=== PATIENT | male | born 1960 | race Caucasian/White ===

== ENCOUNTER 2021-01-24 20:18 | Emergency (ER) | payer MEDICAID ==
[~2021-01-24] VITALS: Ht 182.9 cm; Wt 61.7 kg
[2021-01-24 20:20] VITALS: BP_SYST 192
--- NOTE | 2021-01-24 20:23 | NUR ---
[facility] Side rails up. Report given to Mer PATRICK.
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
--- NOTE | 2021-01-24 20:49 | NUR ---
ER Dr. Garcia at bedside examining patient.
[2021-01-24] MEDS ORDERED: ASPIRIN 81 MG TAB.CHEW PO ONE (21:00)
[2021-01-24] MEDS ORDERED: hydrALAZINE HCL 20 MG/ML VIAL IVP ONE (21:00)
--- NOTE | 2021-01-24 21:00 | NUR ---
# 18 gauge angiocath placed to RAC. Use of asceptic technique. Opsite placed over site. Blood return noted. Blood for lab drawn from site. Flushed with 10 cc of normal saline. No evidence of infiltration noted. Patient tolerated well.
--- NOTE | 2021-01-24 21:01 | NUR ---
Patient moved to bed 2 for cardiac monitoring
[2021-01-24 21:12] LABS: BASOPHILS # (AUTO) 0.1 K/uL (0.0-0.2); BASOPHILS % (AUTO) 0.8 % (0.0-2.0); EOSINOPHILS % (AUTO) 0.2 % (0.0-4.0); HEMATOCRIT 45.6 % (36-54); HEMOGLOBIN 15.9 g/dL (14.0-18.0); LYMPHOCYTES # (AUTO) 1.4 K/uL (1.0-5.5); LYMPHOCYTES % (AUTO) 17.3 % (20.5-51.5); MEAN CORPUSCULAR HEMOGLOBIN 37 pg (27-31); MEAN CORPUSCULAR HGB CONC 35 % (32-36); MEAN CORPUSCULAR VOLUME 106 fL (79.0-98.0); MONOCYTES # (AUTO) 0.6 K/uL (0.0-1.0); MONOCYTES % (AUTO) 7.5 % (1.7-9.3); NEUTROPHILS # (AUTO) 5.9 K/uL (1.8-7.7); NEUTROPHILS % (AUTO) 74.2 % (40.0-70.0); PLATELET COUNT (AUTO) 236 K/uL (130-430); RED BLOOD CELL COUNT(AUTO) 4.32 MIL/uL (4.2-6.2); RED CELL DISTRIBUTION WIDTH 13.8 % (9.0-15.0)
--- NOTE | 2021-01-24 21:16 | NUR ---
medicated per md orders. Patient tolerated well.
[2021-01-24 22:00] LABS: CALCIUM 8.4 mg/dL (8.4-11.0); CREATININE 0.93 mg/dL (0.55-1.30); POTASSIUM 3.7 mmol/L (3.5-5.1)
[2021-01-24 22:15] LABS: ALBUMIN 3.5 g/dL (3.4-4.8); TOTAL BILIRUBIN 0.5 mg/dL (0.0-1.0)
[2021-01-24] MEDS ORDERED: NACL 0.9% 1,000 ML IV ONE (22:45)
--- NOTE | 2021-01-24 23:13 | NUR ---
ER Dr. Pj Hua at bedside examining patient
[2021-01-24] MEDS ORDERED: LORazepam 2 MG/ML VIAL IVP ONE ×2 (23:15→23:30)
--- NOTE | 2021-01-24 23:20 | NUR ---
Dr. White at bedside for cardiac ultrasound. Patient having tachycardia and hypertension, anxious and speaking fast. Placed new orders by .
[2021-01-24] MEDS ORDERED: ENALAPRILAT DIHYDRATE 1.25 MG/ML VIAL IVP ONE (23:30)
[2021-01-24] MEDS ORDERED: NITROGLYCERIN 1 INCH (GM) OINT. TP ONE (23:30)
[2021-01-24] MEDS ORDERED: METOPROLOL TARTRATE 5 MG/5 ML AMPUL IVP ONE (23:45)
--- NOTE | 2021-01-25 00:01 | NUR ---
Patient's BP 100/69. HR 110bpm. MD notified. New orders placed. Nitropaste removed. 250ml NS Bolus given.
[2021-01-25] MEDS ORDERED: NACL 0.9% 250 ML IV ONE (00:15)
--- NOTE | 2021-01-25 00:15 | NUR ---
bp 98/64. MD notified. Verbal order for 500ml NS Bolus and placed placed in Trendelenberg. Patient sleeping able to respond to voice and answer questions.
--- NOTE | 2021-01-25 01:36 | NUR ---
Patient easily arousable. BP WNL. HR 90. VSRey. notified.
--- NOTE | 2021-01-25 01:42 | NUR ---
Dr. White at bedside discussing results
[2021-01-25] MEDS ORDERED: COR3.125 PO (02:10)
[2021-01-25] MEDS ORDERED: HYDR-3698 PO (02:10)
[2021-01-25] MEDS ORDERED: AMLO5TAB4 PO (02:10)
[2021-01-25 02:15] VITALS: BP_SYST 126
--- NOTE | 2021-01-25 02:15 | NUR ---
Patient given written and verbal discharge instructions and verbalizes understanding. ER MD discussed with patient the results and treatment provided. Patient in stable condition. ID arm band removed. IV catheter removed intact and dressing applied, no active bleeding. Rx of norvasc, coreg, and atarax given. Patient educated on pain management and to follow up with PMD. Pain Scale 0/10 Opportunity for questions provided and answered. Medication side effect fact sheet provided.
[2021-01-25] MEDS ORDERED: LORA-259 PO (06:28)
== END 2021-01-25 02:15 ==
LOC: SED 20:18
DX: F41.8 Other specified anxiety disorders (principal); I11.0 Hypertensive heart disease with heart failure; I50.9 Heart failure, unspecified; F12.90 Cannabis use, unspecified, uncomplicated
CPT/HCPCS: 36415; 71045; 80053; 83880; 84484; 85025; 93005; 96361; 96374; 96375; 99285; J0360; J2060; J3490; J7030

== ENCOUNTER 2021-01-25 04:23 | Emergency (ER) | payer MEDICAID ==
[~2021-01-25] VITALS: Ht 182.9 cm; Wt 62.6 kg
[~2021-01-25 04:23] MED LIST: AMLO5TAB4 PO; COR3.125 PO; HYDR-3698 PO
[2021-01-25 04:25] VITALS: BP_SYST 149
--- NOTE | 2021-01-25 04:27 | NUR ---
Placed in room 2 . Placed on school bus monitor, blood pressure machine and pulse oximeter. To gown for exam. Side rails up. Report given to SINDY PATRICK.
--- NOTE | 2021-01-25 04:28 | NUR ---
KRISH He at bedside examining patient.
[2021-01-25] MEDS ORDERED: ASPIRIN 81 MG TAB.CHEW PO ONE (04:30)
[2021-01-25] MEDS ORDERED: ASPIRIN 325 MG TABLET PO ONE (04:30)
[2021-01-25] MEDS ORDERED: amLODIPine BESYLATE 5 MG TABLET PO ONE (04:30)
[2021-01-25] MEDS ORDERED: LORazepam 2 MG/ML VIAL IVP ONE (04:30)
[2021-01-25] MEDS ORDERED: amLODIPine BESYLATE 5 MG TABLET ONE (04:44)
[2021-01-25] MEDS ORDERED: FOLIC ACID 1 MG, THIAMINE HCL 100 MG, MAGNESIUM SULFATE 1 GM, MVI 10 ML in NACL 0.9% 1,... IV ONE (04:45)
[2021-01-25] MEDS ORDERED: FOLIC ACID 5 MG/ML VIAL IV ONE (04:48)
[2021-01-25] MEDS ORDERED: THIAMINE HCL 100 MG/ML VIAL ONE (04:48)
[2021-01-25] MEDS ORDERED: MVI 10 ML VIAL IV ONE (04:48)
[2021-01-25] MEDS ORDERED: MAGNESIUM SULFATE 1 GM/2 ML VIAL ONE (04:48)
--- NOTE | 2021-01-25 04:52 | NUR ---
Assumed total care of patient. Patient AAO x4 BIB BLS in [facility] c/o nonrchest pain. Patient seen earlier tonight for similar symptoms. Patient last drink of alcohol 11pm on 01/24/21. Patient placed on pvc monitor, VSS, breathing even and unlabored, no signs of acute distress noted. Police at bedside. Will continue to monitor.
[2021-01-25] MEDS ORDERED: CARVEDILOL 6.25 MG TABLET (COREG) PO ONE (05:30)
[2021-01-25] MEDS ORDERED: CARVEDILOL 6.25 MG TABLET (COREG) ONE (05:32)
--- NOTE | 2021-01-25 05:32 | NUR ---
Patient medicated per MD orders. Patient tolerated well. Will continue to monitor.
[2021-01-25] MEDS ORDERED: LORA-259 PO (06:28)
--- NOTE | 2021-01-25 06:50 | NUR ---
Patient and [facility] given written and verbal discharge instructions and verbalizes understanding. ER MD discussed with patient the results and treatment provided. Patient in stable condition. ID arm band removed. IV catheter removed intact and dressing applied, no active bleeding. Rx of ativan given. Patient educated on pain management and to follow up with PMD. Pain Scale 0/10. Opportunity for questions provided and answered. Medication side effect fact sheet provided.
[2021-01-25 06:51] VITALS: BP_SYST 143
== END 2021-01-25 06:50 ==
LOC: SED 04:23
DX: F10.239 Alcohol dependence with withdrawal, unspecified (principal); I11.0 Hypertensive heart disease with heart failure; I50.9 Heart failure, unspecified; Z79.899 Other long term (current) drug therapy; Y90.9 Presence of alcohol in blood, level not specified
CPT/HCPCS: 36415; 71045; 84484; 93005; 96365; 96366; 96375; 99285; J2060; J3411; J3475; J3490